=== PATIENT | male | born 1995 | race Caucasian/White ===

== ENCOUNTER 2020-02-09 09:58 | Emergency (ER) | payer OTHER ==
[~2020-02-09] VITALS: Ht 188 cm; Wt 85.3 kg
[2020-02-09 10:34] LABS: BASOPHILS ABSOLUTE AUTO 0.02 K/mm3 (0.00-0.23); BASOPHILS PERCENT AUTO 0 % (0-2); EOSINOPHILS ABSOLUTE AUTO 0.08 K/mm3 (0.00-0.68); EOSINOPHILS PERCENT AUTO 2 % (0-6); Hematocrit 49.4 % (37.0-53.0); Hemoglobin 17.1 g/dL (13.5-17.5); IMMATURE GRAN ABSOLUTE AUTO 0.02 K/mm3 (0.00-0.10); IMMATURE GRAN PERCENT AUTO 0 % (0-1); LYMPHOCYTES ABSOLUTE AUTO 1.56 K/mm3 (0.84-5.20); LYMPHOCYTES PERCENT AUTO 32 % (21-46); MONOCYTES ABSOLUTE AUTO 0.36 K/mm3 (0.16-1.47); MONOCYTES PERCENT AUTO 8 % (4-13); Mean Corpuscular HGB 28.6 pg (26.0-34.0); Mean Corpuscular HGB Conc 34.6 g/dL (31.5-36.5); Mean Corpuscular Volume 83 fL (80-100); Mean Platelet Volume 9.2 fL (9.1-12.4); NEUTROPHILS ABSOLUTE AUTO 2.78 K/mm3 (1.96-9.15); NEUTROPHILS PERCENT AUTO 58 % (41-73); Platelet Count 185 K/mm3 (150-400); RDW Coefficient Variation 11.3 % (11.7-14.2); Red Blood Cell Count 5.97 M/mm3 (4.30-5.90); White Blood Cell Count 4.82 K/mm3 (4.00-11.30)
[2020-02-09 10:54] LABS: Alanine Aminotransfer (ALT/SGP 31 U/L (12-78); Albumin, Blood 4.4 g/dL (3.4-5.0); Albumin/Globulin Ratio 1.3 (0.8-1.8); Alk Phos 125 U/L (50-136); Anion Gap 3 mmol/L (6-16); Aspartate Aminotrans (AST/SGOT 20 U/L (12-37); Bilirubin, Total 0.5 mg/dL (0.1-1.0); Blood Urea Nitrogen 9 mg/dL (8-24); Bun/Creatinine Ratio 8.2 (12.0-20.0); CO2, Blood 29 mmol/L (21-32); Calcium, Blood 9.4 mg/dL (8.5-10.1); Chloride, Blood 108 mmol/L (98-108); Globulin, Blood 3.5 g/dL (2.2-4.0); Glomerular Filtration Rate >60 (60-); Glucose, Blood 103 mg/dL (70-99); Potassium, Blood 3.9 mmol/L (3.5-5.5); Sodium, Blood 140 mmol/L (136-145); Total Protein, Blood 7.9 g/dL (6.4-8.2)
[2020-02-09 15:20] LABS: Appearance, Urine Clear (Clear); Bilirubin, Urine Neg (Neg); Blood, Urine Neg (Neg); Color, Urine Yellow (P-Yellow); Glucose Qualitative, Urine Neg (Neg); Ketones, Urine Neg (Neg); Leukocyte Esterase, Urine Neg (Neg); Nitrite, Urine Neg (Neg); Protein, Urine Neg (Neg); Specific Gravity, Urine 1.005 (1.003-1.022); Urobilinogen, Urine NORM (Normal)
== END 2020-02-09 17:12 | disposition home or self-care (01) ==
LOC: ER 09:58
PROVIDERS: Emergency Medicine
DX: R07.89 Other chest pain (principal); F17.220 Nicotine dependence, chewing tobacco, uncomplicated
CPT/HCPCS: 71046; 80053; 81003; 83690; 84484; 85025; 85379; 93005; 93010; 99285-25

== ENCOUNTER 2021-07-26 01:42 | Emergency (ER) | payer OTHER ==
[~2021-07-26] VITALS: Ht 188 cm; Wt 87.5 kg
== END 2021-07-26 04:30 | disposition home or self-care (01) ==
LOC: ER 01:42
DX: M25.531 Pain in right wrist (principal); F17.220 Nicotine dependence, chewing tobacco, uncomplicated; W19.XXXA Unspecified fall, initial encounter
CPT/HCPCS: 73110

== ENCOUNTER 2022-07-30 23:58 | Emergency (ER) | payer OTHER ==
[~2022-07-30] VITALS: Ht 188 cm; Wt 88.5 kg
[2022-07-31] MEDS ORDERED: CLIN300 PO (00:57)
[2022-07-31 01:00] VITALS: BP 155/104
== END 2022-07-31 01:12 | disposition home or self-care (01) ==
LOC: ER 23:58
DX: K08.89 Other specified disorders of teeth and supporting structures (principal); F17.220 Nicotine dependence, chewing tobacco, uncomplicated
CPT/HCPCS: 99282; A9270

== ENCOUNTER 2022-12-15 00:27 | Emergency (ER) | payer OTHER ==
[~2022-12-15] VITALS: Ht 188 cm; Wt 88.5 kg
[~2022-12-15 00:27] MED LIST: CLIN300 PO
[2022-12-15 00:34] VITALS: BP 131/78
[2022-12-15] MEDS ORDERED: Ibuprofen600 MG PO (03:52)
[2022-12-15] MEDS ORDERED: ACET500 PO (03:52)
== END 2022-12-15 03:58 | disposition home or self-care (01) ==
LOC: ER 00:27
DX: S62.663A Nondisplaced fracture of distal phalanx of left middle finger, initial encounter for closed fracture (principal); Z23 Encounter for immunization; W23.1XXA Caught, crushed, jammed, or pinched between stationary objects, initial encounter; Z87.891 Personal history of nicotine dependence
CPT/HCPCS: 29130; 73140; 90471; 90715; 99283-25; A9270

== ENCOUNTER 2023-08-30 02:43 | Emergency (ER) | payer OTHER ==
[~2023-08-30] VITALS: Ht 188 cm; Wt 88.5 kg
[~2023-08-30 02:43] MED LIST changes: +ACET500 PO; +Ibuprofen600 MG PO
[2023-08-30 03:01] VITALS: BP 150/113
[2023-08-30] MEDS ORDERED: IBU600 MG PO (03:03)
[2023-08-30] MEDS ORDERED: Veetids 500500 MG PO (03:03)
[2023-08-30] MEDS ORDERED: Ibuprofen 600 MG Tab PO ONE (03:05)
[2023-08-30] MEDS ORDERED: Penicillin V Potassium 250 MG Tab PO ONE (03:05)
== END 2023-08-30 03:13 | disposition home or self-care (01) ==
LOC: ER 02:43
DX: K08.89 Other specified disorders of teeth and supporting structures (principal); Z87.891 Personal history of nicotine dependence; Z79.1 Long term (current) use of non-steroidal anti-inflammatories (NSAID)
CPT/HCPCS: 99282; A9270

== ENCOUNTER 2023-09-05 02:50 | Emergency (ER) | payer OTHER ==
[~2023-09-05] VITALS: Ht 188 cm; Wt 88.5 kg
[~2023-09-05 02:50] MED LIST changes: +IBU600 MG PO; +Veetids 500500 MG PO
[2023-09-05 03:54] VITALS: BP 147/82
[2023-09-05] MEDS ORDERED: dexAMETHasone 4 MG TAB PO ONE (04:35)
== END 2023-09-05 05:03 | disposition home or self-care (01) ==
LOC: ER 02:50
DX: J02.9 Acute pharyngitis, unspecified (principal)
CPT/HCPCS: 99284

== ENCOUNTER 2024-04-04 19:24 | Emergency (ER) | payer OTHER ==
[~2024-04-04] VITALS: Ht 188 cm; Wt 88.5 kg
[~2024-04-04 19:24] MED LIST changes: +AMOCLA875 PO
[2024-04-04 19:35] VITALS: BP 160/84
[2024-04-04] MEDS ORDERED: Diphth,Pertuss(Acell),Tet Vac 0.5 ML VIAL IM ONE (21:25)
== END 2024-04-04 22:00 | disposition home or self-care (01) ==
LOC: ER 19:24
DX: S61.012A Laceration without foreign body of left thumb without damage to nail, initial encounter (principal); Z23 Encounter for immunization; Z87.891 Personal history of nicotine dependence; W26.8XXA Contact with other sharp object(s), not elsewhere classified, initial encounter
CPT/HCPCS: 12001; 90471; 90715; 99282-25